=== PATIENT | male | born 2005 | race Caucasian/White ===

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

== ENCOUNTER 2023-02-02 00:06 | Emergency (ER) | payer MEDICAID, SELFPAY ==
[2023-02-02 00:07] VITALS: BMI 18.6
[2023-02-02 00:09] VITALS: BP 137/71; PULSE 104; RESP 16; TEMP 36.8; O2SAT 98
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
[2023-02-02 00:19] VITALS: RESP 18; O2SAT 94
[2023-02-02] MEDS: morphine 4 mg/mL SDV 1 mL IVP (00:19)
[2023-02-02] MEDS: ondansetron 2 mg/ML SDV 2 mL 4 MG IVP (00:20)
[2023-02-02 00:33] VITALS: BP 130/79; PULSE 92; RESP 18; O2SAT 96
== END 2023-02-02 00:40 | disposition home or self-care (01) ==
PROVIDERS: Emergency Provider Emergency Medicine; PCP Family Medicine
DX: S46.912A Strain of unspecified muscle, fascia and tendon at shoulder and upper arm level, left arm, initial encounter (principal); Y08.89XA Assault by other specified means, initial encounter; Y92.008 Other place in unspecified non-institutional (private) residence as the place of occurrence of the external cause
CPT/HCPCS: 12002; 73030; 96374; 96375; 99283; J2270; J2405

== ENCOUNTER 2024-06-13 23:23 | Emergency (ER) | payer MEDICAID, SELFPAY ==
--- NOTE | 2024-06-13 23:26 | ECG_ITS ---
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 Measurements Intervals [place] Rate: 83 P: 65 UT: 161 QRS: 81 QRSD: 96 T: 70 QT: 367 QTc: 433 Interpretive Statements SINUS RHYTHM WITH MARKED SINUS ARRHYTHMIA POSSIBLE LEFT ATRIAL ENLARGEMENT INCOMPLETE RIGHT BUNDLE BRANCH BLOCK Compared to ECG 03/12/2022 04:33:23 Sinus tachycardia no longer present Electronically Signed On 06-14-2024 12:10:41 CDT by Albino Drummond M.D. [email or web address]
[2024-06-13 23:27] VITALS: BP 161/81; PULSE 100; RESP 19; TEMP 36.8; O2SAT 100; BMI 19.8
[2024-06-13 23:33] VITALS: BP 141/86; PULSE 63; O2SAT 92
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
[2024-06-13 23:51] LABS: Basophils # 0.1 10^3/uL (0.0-0.1); Eosinophils # 0.2 10^3/uL (0.0-0.8); Eosinophils % 1.8 %; Hematocrit 41.1 % (37-53); Lymphocytes # 4.2 10^3/uL (1.5-6.5); Lymphocytes % 39.3 %; Mean Corpuscular Hemoglobin 29.2 pg (27-33); Mean Corpuscular Volume 83.4 fl (82-101); Mean Platelet Volume 10.7 fL (7.4-10.4); Monocytes # 0.7 10^3/uL (0.2-0.9); Monocytes % 6.1 %; Neutrophils # 5.52 10^3/uL (1.8-8.0); Neutrophils % 51.6 %; Nucleated Red Blood Cells % 0 %; Platelet Count 313 10^3/cmm (157-399); Red Blood Count 4.93 10^6/uL (3.85-5.65); Red Cell Distribution Width 13.5 % (12.1-15.1); White Blood Count 10.69 10^3/uL (4.5-13.0)
[2024-06-14] MEDS: ketorolac 30 mg/mL INJ 15 MG IVP (00:03)
[2024-06-14 00:04] VITALS: RESP 22; O2SAT 100
[2024-06-14] MEDS: morphine 4 mg/mL SDV 1 mL IVP (00:04)
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
[2024-06-14] MEDS: ondansetron 2 mg/ML SDV 2 mL 4 MG IVP (00:06)
[2024-06-14 00:07] LABS: Troponin(5th) Baseline 10 ng/L (0-15)
[2024-06-14 00:08] LABS: Alanine Aminotransferase 11 U/L (0-41); Albumin Level 4.5 g/dL (3.5-5.2); Alkaline Phosphatase 171 U/L (40-130); Blood Urea Nitrogen 9 mg/dL (6-20); Carbon Dioxide 20 mmol/L (22-29); Chloride 104 mmol/L (98-107); Creatine Phosphokinase 258 U/L (39-308); Creatinine Clr Calc Pharmacy 134.6392; Globulin 2.6 g/dL (1.3-4.6); Glomerular Filtration Rate 123.2 mL/min (90-130); Glucose 114 mg/dL (65-115); Osmolality Calculated 286 mOsm/kg (285-295); Sodium 138 mmol/L (136-145); Total Bilirubin 0.4 mg/dL (0.15-1.2); Total Protein 7.1 g/dL (6.6-8.7)
[2024-06-14 00:12] LABS: Anion Gap 17.3 (5-19); Aspartate Amino Transferase 24 U/L (0-40); Potassium 3.3 mmol/L (3.5-5.1)
[2024-06-14 00:33] VITALS: BP 146/72; PULSE 86; RESP 18; O2SAT 100
[2024-06-14 01:39] VITALS: BP 143/87; PULSE 71; RESP 19; O2SAT 100
== END 2024-06-14 01:30 | disposition home or self-care (01) ==
PROVIDERS: Emergency Provider Nurse Practitioner Family; PCP Family Medicine
DX: S20.212A Contusion of left front wall of thorax, initial encounter (principal); V80.018A Animal-rider injured by fall from or being thrown from other animal in noncollision accident, initial encounter; F17.290 Nicotine dependence, other tobacco product, uncomplicated
CPT/HCPCS: 71250; 80053; 82550; 84484; 85025; 93005; 96374; 96375; 99285; J1885; J2270; J2405

== ENCOUNTER 2024-12-21 22:28 | Emergency (ER) | payer MEDICAID, SELFPAY ==
[2024-12-21 22:29] VITALS: BP 140/75; PULSE 104; RESP 22; TEMP 36.4; O2SAT 100; BMI 19.8
--- NOTE | 2024-12-21 22:33 | ECG_ITS ---
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 Requested By: Teodoro Elliott Order Number: [id number] Crispin MD: ISATU MEYER Measurements Intervals [place] Rate: 104 P: 66 [place]: 164 QRS: 73 QRSD: 90 T: 76 QT: 326 QTc: 429 Interpretive Statements SINUS TACHYCARDIA LEFT ATRIAL ENLARGEMENT [-0.15mV P-WAVE IN V1/V2] POSSIBLE RIGHT VENTRICULAR CONDUCTION DELAY [RSR (QR) IN V1/V2] MODERATE ST DEPRESSION [0.05+ mV ST DEPRESSION] Compared to ECG 06/13/2024 23:26:31 ST (T wave) deviation now present Sinus rhythm no longer present Sinus arrhythmia no longer present Incomplete right bundle-branch block no longer present Electronically Signed On 12-22-2024 16:21:04 CDT by ISATU MEYER [id number]
--- NOTE | 2024-12-21 22:33 | XRR_ITS ---
PROCEDURE INFORMATION: Exam: XR Chest Exam date and time: 12/21/2024 10:41 PM Age: 19 years old Clinical indication: Shortness of breath; SOB TECHNIQUE: Imaging protocol: Radiologic exam of the chest. Views: 1 view. COMPARISON: CT chest con [id number] 06/13/2024 11:44 PM FINDINGS: Lungs: Unremarkable. No consolidation. Pleural spaces: Unremarkable. No pleural effusion. No pneumothorax. Heart/Mediastinum: Unremarkable. No cardiomegaly. Bones/joints: Unremarkable. XR/XR chest 1V portable [id number] IMPRESSION: No acute findings.
--- NOTE | 2024-12-21 23:26 | ECG_ITS ---
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: : 2005 Requested By: Cristofer Rosado Order Number: [id number] Crispin MD: ISATU MEYER Measurements Intervals [place] Rate: 58 P: 37 RI: 157 QRS: 72 QRSD: 94 T: 57 QT: 364 QTc: 358 Interpretive Statements SINUS BRADYCARDIA POSSIBLE RIGHT VENTRICULAR CONDUCTION DELAY [RSR (QR) IN V1/V2] Compared to ECG 12/21/2024 22:34:04 Sinus tachycardia no longer present Atrial abnormality no longer present ST (T wave) deviation no longer present Electronically Signed On 12-22-2024 16:21:11 CDT by ISATU MEYER [id number] [id number]
--- NOTE | 2024-12-21 23:27 | W.ED.CHESTPA ---
HPI - Chest Pain General: Chief Complaint: Chest Pain Stated Complaint: CP SOB Time Seen by Provider: 12/21/24 23:20 History of Present Illness: 19-year-old male who presents emerged part with complaint of chest pain and syncope. Patient states that he was chasing his child around and developed chest pain and then had a syncopal episode. He states he has had chest pain a few times in the past year but never as bad as this. His chest wall does hurt to palpate on the left side underneath the breast as well as a little bit to the right along the sternal border. Does have a history of drug use. He states he does not use drugs anymore. He does smoke. Related Data Previous Rx's ?Medication ?Instructions ?Recorded naproxen 500 mg tablet 500 mg PO BID PRN pain #28 tabs 11/20/21 methocarbamol 750 mg tablet 750 mg PO Q6H PRN spasms #20 tabs 06/14/24 naproxen 500 mg tablet (Naprosyn) 500 mg PO BID PRN pain #20 tabs 06/14/24 escitalopram oxalate 20 mg tablet 20 mg PO DAILY #30 tabs 11/13/24 quetiapine 100 mg tablet 100 mg PO .q hs #30 tabs 11/13/24 Allergies Allergy/AdvReac Type Severity Reaction Status Date / Time No Known Allergies Allergy Verified 11/13/24 13:51 [facility] ED PFSH: Medical History (Updated 12/22/24 @ 00:36 by Cristofer Rosado MD) Psychiatric care No pertinent past medical history Social History Smoking and tobacco/nicotine status: current every day tobacco/nicotine user cigarettes Packs smoked per day: 2, e-cigarettes E-Cigarette Details: with nicotine and smokeless tobacco Smokeless tobacco user: chewing tobacco Quit status (tobacco/nicotine): not considering quitting Second hand smoke exposure: No Alcohol intake: current Alcohol intake frequency: holidays/special occasions only Alcohol type: beer Substance/Drug Use: former Date of last use: december 2020- Physical Exam HENMT: COMMON NORMALS: normocephalic, atraumatic, hearing grossly normal bilaterally, external ears normal, EAC's normal, TM's normal bilaterally, Normal external nose present, Normal nasal mucous membranes and turbinates present, moist oral mucous membranes, oropharynx normal, dentition normal and gingiva normal HEAD & SCALP: normocephalic and atraumatic NOSE: Normal external nose present and Normal nasal mucous membranes and turbinates present EXTERNAL EAR: Yes external ears normal EXTERNAL AUDITORY CANAL: EAC's normal TYMPANIC MEMBRANE: TM's normal bilaterally Neck/C-Spine: COMMON NORMALS: no JVD Chest: OTHER: Both left and right chest wall tenderness Resp: COMMON NORMALS: normal respiratory effort, No retractions, No use of accessory muscles, clear to auscultation bilaterally and percussion normal AUSCULTATION: clear to auscultation bilaterally PERCUSSION: percussion normal Cardio: COMMON NORMALS: no JVD, regular rate, regular rhythm, S1 normal heart sound present, S2 normal heart sound present, No gallops present (Cardio), No clicks present (Cardio), No murmurs present (Cardio), No rub (Cardio) and Peripheral pulses 2+ throughout RATE: regular rate RHYTHM: regular rhythm HEART SOUNDS: S1 normal heart sound present and S2 normal heart sound present PERIPHERAL PULSES: Peripheral pulses 2+ throughout GI: COMMON NORMALS: Normal to inspection, nondistended, normoactive bowel sounds present, Soft to palpation, non-tender, No hepatosplenomegaly present, no masses and no bruits PALPATION: Yes Soft to palpation and Yes No hepatosplenomegaly present Neuro: FRANCISCA COMA SCALE: document GCS findings COMMON NORMALS: CN's II-XII intact bilaterally, moves all extremities, no focal motor deficits and no sensory deficits noted Course Vital Signs: Vital signs: Vital Signs Temperature 97.5 F L 12/21/24 22:29 Pulse Rate 69 12/21/24 23:33 Respiratory Rate 22 H 12/21/24 22:29 Blood Pressure 138/83 12/21/24 23:33 Pulse Oximetry 93 12/21/24 23:33 Oxygen Delivery Me thod Room Air 12/21/24 22:29 MDM - Chest Pain Medical Decision Making Patient presented to the emergency department with complaint of chest pain and syncope. He left prior to workup being completed. He states that he feels better and does not want to stay for results. His initial labs that were back did not show any significant abnormality. Had a negative troponin and negative D-dimer. Suspect noncardiac etiology but again patient left AGAINST MEDICAL ADVICE prior to completion of workup. Patient is awake and alert nonintoxicated and appears to have capacity to make his own medical decisions. Lab Data 12/21/24 23:26 12/21/24 23: Radiology Impressions Chest X-Ray 12/21/24 22:33 IMPRESSION: No acute findings. Laboratory Results WBC 9.92 10^3/uL (3.29-11.43) 12/21/24 23: RBC 5.25 10^6/uL (3.85-5.65) 12/21/24 23: Hgb 15.50 g/dL (11.27-16.99) 12/21/24 23: Hct 45.2 % (37-53) 12/21/24 23: MCV 86.1 fl (82-101) 12/21/24 23: MCH 29.5 pg (27-33) 12/21/24 23: MCHC 34.3 g/dL (30-55) 12/21/24 23: RDW 12.8 % (12.1-15.1) 12/21/24 23: Plt Count 271 10^3/cmm (157-399) 12/21/24 23: MPV 11.0 fL (7.4-10.4) H 12/21/24 23: Neut % (Auto) 49.0 % 12/21/24 23: Lymph % (Auto) 43.4 % 12/21/24 23: [place] % (Auto) 5.6 % 12/21/24 23: Eos % (Auto) 0.9 % 12/21/24 23: Baso % (Auto) 0.9 % 12/21/24 23: Neut # (Auto) 4.85 10^3/uL (1.8-7.7) 12/21/24 23: Lymph # (Auto) 4.3 10^3/uL (0.8-4.8) 12/21/24 23: [place] # (Auto) 0.6 10^3/uL (0.2-0.9) 12/21/24 23: Eos # (Auto) 0.1 10^3/uL (0.0-0.8) 12/21/24 23: Baso # (Auto) 0.1 10^3/uL (0.0-0.1) 12/21/24 23:26 Nucleated RBC % (auto) 0 % 12/21/24 23: Nucleated RBCs # 0.0 /100WBC 12/21/24 23:26 D-Dimer 0.33 ug/mLFEU (0-0.59) 12/21/24 23:26 Sodium 144 mmol/L (136-145) 12/21/24 23:26 Potassium 3.7 mmol/L (3.5-5.1) 12/21/24 23:26 Chloride 110 mmol/L (98-107) H 12/21/24 23:26 Carbon Dioxide 23 mmol/L (22-29) 12/21/24 23:26 Anion Gap 14.7 (5-19) 12/21/24 23:26 BUN 11 mg/dL (6-20) 12/21/24 23:26 Creatinine 0.7 mg/dL (0.7-1.2) 12/21/24 23:26 GFR Calculation 142.4 mL/min (90-130) H 12/21/24 23:26 Glucose 97 mg/dL (65-115) 12/21/24 23:26 Calculated Osmolality 297 mOsm/kg (285-295) H 12/21/24 23:26 Calcium 10.5 mg/dL (8.5-10.5) 12/21/24 23:26 Total Bilirubin 0.2 mg/dL (0.15-1.2) 12/21/24 23:26 AST 25 U/L (0-40) 12/21/24 23: ALT 33 U/L (0-41) 12/21/24 23:26 Alkaline Phosphatase 154 U/L (40-130) H 12/21/24 23:26 Troponin T Baseline 8 ng/L (0-15) 12/21/24 23:26 NT-Pro-B Natriuret Pep < 36 pg/mL (0-125) 12/21/24 23:26 Total Protein 7.2 g/dL (6.6-8.7) 12/21/24 23:26 Albumin 4.5 g/dL (3.5-5.2) 12/21/24 23: Globulin 2.7 g/dL (1.3-4.6) 12/21/24 23:26 Lipase 17 U/L (13-60) 12/21/24 23:26 All radiology interpretation(s) finalized by discharge Discharge Plan Discharge Patient Disposition: Left Against Medical Advice Clinical Impression: Chest pain Qualifiers: Chest pain type: unspecified Qualified Code(s): R07.9 - Chest pain, unspecified Condition: Stable Prescriptions: No Action quetiapine 100 mg tablet 100 mg PO .q hs Qty: 30 1RF escitalopram oxalate 20 mg tablet 20 mg PO DAILY Qty: 30 1RF naproxen 500 mg tablet 500 mg PO BID PRN (Reason: pain) Qty: 28 0RF methocarbamol 750 mg tablet 750 mg PO Q6H PRN (Reason: spasms) Qty: 20 0RF naproxen [Naprosyn] 500 mg tablet 500 mg PO BID PRN (Reason: pain) Qty: 20 0RF Referrals: Kam Villela MD [Primary Care Provider, Family Practice] Print Language: Tamazight Coding Level of Care Code ED Managed Services Sales Consultant for aKtie Carrero
[2024-12-21 23:33] VITALS: BP 138/83; PULSE 69; O2SAT 93
[2024-12-21] MEDS: ketorolac 30 mg/mL INJ IVP (23:45)
[2024-12-21 23:56] LABS: D Dimer 0.33 ug/mLFEU (0-0.59)
[2024-12-21 23:58] LABS: Basophils # 0.1 10^3/uL (0.0-0.1); Basophils % 0.9 %; Eosinophils # 0.1 10^3/uL (0.0-0.8); Eosinophils % 0.9 %; Hematocrit 45.2 % (37-53); Lymphocytes # 4.3 10^3/uL (0.8-4.8); Lymphocytes % 43.4 %; Mean Corpuscular HGB Conc 34.3 g/dL (30-55); Mean Corpuscular Hemoglobin 29.5 pg (27-33); Mean Corpuscular Volume 86.1 fl (82-101); Monocytes # 0.6 10^3/uL (0.2-0.9); Monocytes % 5.6 %; Neutrophils # 4.85 10^3/uL (1.8-7.7); Nucleated Red Blood Cells % 0 %; Platelet Count 271 10^3/cmm (157-399); Red Blood Count 5.25 10^6/uL (3.85-5.65); Red Cell Distribution Width 12.8 % (12.1-15.1); White Blood Count 9.92 10^3/uL (3.29-11.43)
[2024-12-22] LABS: Troponin(5th) Baseline 8 ng/L (0-15)
[2024-12-22 00:08] LABS: Alanine Aminotransferase 33 U/L (0-41); Albumin Level 4.5 g/dL (3.5-5.2); Alkaline Phosphatase 154 U/L (40-130); Anion Gap 14.7 (5-19); Aspartate Amino Transferase 25 U/L (0-40); Blood Urea Nitrogen 11 mg/dL (6-20); Calcium 10.5 mg/dL (8.5-10.5); Carbon Dioxide 23 mmol/L (22-29); Chloride 110 mmol/L (98-107); Creatinine Clr Calc Pharmacy 152.5911; Globulin 2.7 g/dL (1.3-4.6); Glomerular Filtration Rate 142.4 mL/min (90-130); Glucose 97 mg/dL (65-115); Lipase 17 U/L (13-60); Osmolality Calculated 297 mOsm/kg (285-295); Potassium 3.7 mmol/L (3.5-5.1); Sodium 144 mmol/L (136-145); Total Bilirubin 0.2 mg/dL (0.15-1.2); Total Protein 7.2 g/dL (6.6-8.7)
[2024-12-22 00:13] LABS: NT Pro B Type Natriuretic Pept < 36 pg/mL (0-125)
== END 2024-12-22 00:33 | disposition left against medical advice (07) ==
PROVIDERS: Emergency Provider Emergency Medicine; PCP Family Medicine
DX: R07.9 Chest pain, unspecified (principal); F17.210 Nicotine dependence, cigarettes, uncomplicated
CPT/HCPCS: 71045; 80053; 83690; 83880; 84484; 85025; 85378; 93005; 96374; 99285; J1885

== ENCOUNTER 2025-01-07 16:33 | Emergency (ER) | payer MEDICAID, SELFPAY ==
--- NOTE | 2025-01-07 16:38 | ECG_ITS ---
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 Requested By: Rojelio Watkins Order Number: [id number] Crispin MD: ISATU MEYER Measurements Intervals [place] Rate: 78 P: 81 [place]: 148 QRS: 95 QRSD: 93 T: 76 QT: 371 QTc: 423 Interpretive Statements SINUS RHYTHM WITH SINUS ARRHYTHMIA POSSIBLE LEFT ATRIAL ENLARGEMENT [-0.1mV P-WAVE IN V1/V2] BORDERLINE RIGHT AXIS DEVIATION [QRS AXIS > 90] POSSIBLE RIGHT VENTRICULAR CONDUCTION DELAY [RSR (QR) IN V1/V2] POSSIBLE LEFT VENTRICULAR HYPERTROPHY [VOLTAGE CRITERIA PLUS LAE OR QRS WIDENING] INTERPRETATION BASED ON A DEFAULT AGE OF 40 YEARS Compared to ECG 12/21/2024 23:27:51 Sinus bradycardia no longer present Electronically Signed On 01-07-2025 19:02:17 CDT by ISATU MEYER [email or web address] [id number]
--- NOTE | 2025-01-07 16:38 | XRR_ITS ---
PROCEDURE INFORMATION: Exam: XR Chest Exam date and time: 01/07/2025 4:44 PM Age: 19 years old Clinical indication: Cough and dyspnea and other: AMS; Additional info: Dyspnea/cough TECHNIQUE: Imaging protocol: Radiologic exam of the chest. Views: 1 view. COMPARISON: CR (CHEST, ) 12/21/2024 10:41 PM FINDINGS: Lungs: Unremarkable. No consolidation. Pleural spaces: Unremarkable. No pleural effusion. No pneumothorax. Heart/Mediastinum: Unremarkable. No cardiomegaly. Bones/joints: Unremarkable. XR/XR chest 1V portable [id number] IMPRESSION: No acute findings.
--- NOTE | 2025-01-07 16:40 | ED_ITS ---
HPI - General Adult 2 General: Chief complaint: Altered Mental Status Stated complaint: unresponsive Time Seen by Provider: 01/07/25 16:38 History of Present Illness: 19-year-old male arrives to the emergenc y room with the assistance of a another bystanders unresponsive evidently staff had to pull him from the vehicle. He did not respond to sternal rubs shortly after getting to the exam room patient again to arouse he states has been drinking since 9:00's morning he took 2 tablets of escitalopram he usually takes 1 pill twice a day he tells us. He denies taking every anything else. He denies using any other drugs. He is very lethargic. Initial exam patient is no focal neurologic deficits Associated symptoms: Deny chest pain or dyspnea Related Data Previous Rx's ?Medication ?Instructions ?Recorded naproxen 500 mg tablet 500 mg PO BID PRN pain #28 t abs 11/20/21 methocarbamol 750 mg tablet 750 mg PO Q6H PRN spasms # 20 tabs 06/14/24 naproxen 500 mg tablet (Naprosyn) 500 mg PO BID PRN pa in #20 tabs 06/14/24 escitalopram oxalate 20 mg tablet 20 mg PO DAILY #30 t abs 11/13/24 quetiapine 100 mg tablet 100 mg PO .q hs #30 tabs 09/08 Allergies Allergy/AdvReac Type Severity Reaction Status Date / Time No Known Allergies Allergy Verified 11/13/24 13:51 Review of Systems 2 Const: Denies: fever(s) or chills Card: Denies: chest pain Resp: Denies: dyspnea GI: Denies: abdominal pain : Denies: dysuria, urinary frequency or urinary urgency Musc: Denies: neck pain or back pain PFSH ED 2 PFSH: Medical History Psychiatric care No pertinent past medical history Social History Smoking and tobacco/nicotine status: current every day tobacco/nicotine user cigarettes Packs smoked per day: 2, e-cigarettes E-Cigarette Details: with nicotine and smokeless tobacco Smokeless tobacco user: chewing tobacco Quit status (tobacco/nicotine): not considering quitting Second hand smoke exposure: No Alcohol intake: current Alcohol intake frequency: holidays/special occasions only Alcohol type: beer Substance/Drug Use: former Date of last use: december 2020- Physical Exam 2 Const: GENERAL APPEARANCE: cooperative and lethargic O RIENTATION/CONSCIOUSNESS: Yes lethargic HENMT: COMMON NORMALS: normocephalic, atraumatic and hearing grossly normal bilaterally HEAD & SCALP: normocephalic and atraumatic Resp: COMMON NORMALS: normal respiratory effort, No retractions, No use of accessory muscles and clear to auscultation bilaterally AUSCULTATION: clear to auscultation bilaterally Cardio: COMMON NORMALS: regular rate, regular rhythm and No murmurs present (Cardio) RATE: regular rate RHYTHM: regular rhythm GI: COMMON NORMALS: Soft to palpation and No hepatosplenomegaly present A USCULTATION: Yes normoactive bowel sounds PALPATION: Yes Soft to palpation, No Tenderness to palpation present (GI), No Guarding due to palpation present (GI) and Yes No hepatosplenomegaly present Extremity: COMMON NORMALS: normal to inspection, capillary refill normal, no clubbing, cyanosis or edema, no calf tenderness and no pedal edema Neuro: SENSORIUM/ORIENTATION: Yes lethargic Skin: COMMON NORMALS: no rashes or lesions noted GENERAL SKIN EXAM: no rashes or lesions noted Course 2 Vital Signs: Vital signs: Vital Signs Temperature 97.3 F L 01/07/25 16:42 Pulse Rate 67 01/07/25 16:50 Respiratory Rate 12 01/07/25 16:50 Blood Pressure 154/98 01/07/25 16:50 Pulse Oximetry 100 01/07/25 16:50 Oxygen Delivery Me thod Room Air 01/07/25 16:50 MDM - General Adult Medical Decision Making Patient arrived we were able to arouse him but he is very lethargic he was given Narcan shortly thereafter he is awake and alert and he wants to leave. We had gotten blood work from his blood alcohol was undetectable he told us he been drinking all day he is adamant about leaving he denies being homicidal or suicidal he will not answer any further questions I do not have anything with which to place him on a 96-hour hold and he has no family here he has a phone with him which she was operated. He will not discussed the possibility of staying here for the remainder of her workup and he is advised he could return if he wishes. Patient left AGAINST MEDICAL ADVICE. Most likely patient was under the influence of narcotics and Narcan reversed at fully and he is adamant to leave now. Lab Data 01/07/25 16:37 01/07/25 16:37 Radiology Impressions Chest X-Ray 01/07/25 16:38 IMPRESSION: No acute findings. Laboratory Results WBC 8.07 10^3/uL (3.29-11.43) 01/07/25 16:37 RBC 5.80 10^6/uL (3.85-5.65) H 01/07/25 16:37 Hgb 16.60 g/dL (11.27-16.99) 01/07/25 16:37 Hct 48.8 % (37-53) 01/07/25 16:37 MCV 84.1 fl (82-101) 01/07/25 16:37 MCH 28.6 pg (27-33) 01/07/25 16:37 MCHC 34.0 g/dL (30-55) 01/07/25 16:37 RDW 12.7 % (12.1-15.1) 01/07/25 16:37 Plt Count 312 10^3/cmm (157-399) 01/07/25 16:37 MPV 10.2 fL (7.4-10.4) 01/07/25 16:37 Neut % (Auto) 42.2 % 01/07/25 16:37 Lymph % (Auto) 48.1 % 01/07/25 16:37 [place] % (Auto) 6.7 % 01/07/25 16:37 Eos % (Auto) 1.5 % 01/07/25 16:37 Baso % (Auto) 1.1 % 01/07/25 16:37 Neut # (Auto) 3.41 10^3/uL (1.8-7.7) 01/07/25 16:37 Lymph # (Auto) 3.9 10^3/uL (0.8-4.8) 01/07/25 16:37 [place] # (Auto) 0.5 10^3/uL (0.2-0.9) 01/07/25 16:37 Eos # (Auto) 0.1 10^3/uL (0.0-0.8) 01/07/25 16:37 Baso # (Auto) 0.1 10^3/uL (0.0-0.1) 01/07/25 16:37 Nucleated RBC % (auto) 0 % 01/07/25 16:37 Nucleated RBCs # 0.0 /100WBC 01/07/25 16:37 Sodium 139 mmol/L (136-145) 01/07/25 16:37 Potassium 3.5 mmol/L (3.5-5.1) 01/07/25 16:37 Chloride 101 mmol/L (98-107) 01/07/25 16:37 Carbon Dioxide 24 mmol/L (22-29) 01/07/25 16:37 Anion Gap 17.5 (5-19) 01/07/25 16:37 BUN 4 mg/dL (6-20) L 01/07/25 16:37 Creatinine 0.6 mg/dL (0.7-1.2) L 01/07/25 16:37 GFR Calculation 170.1 mL/min (90-130) H 01/07/25 16:37 Glucose 115 mg/dL (65-115) 01/07/25 16:37 Calculated Osmolality 286 mOsm/kg (285-295) 01/07/25 16:37 Lactic Acid 1.3 mmol/L (0.5-2.2) 01/07/25 16:37 Calcium 9.8 mg/dL (8.5-10.5) 01/07/25 16:37 Total Bilirubin 0.2 mg/dL (0.15-1.2) 01/07/25 16:37 AST 21 U/L (0-40) 01/07/25 16:37 ALT 22 U/L (0-41) 01/07/25 16:37 Alkaline Phosphatase 168 U/L (40-130) H 01/07/25 16:37 Total Protein 8.1 g/dL (6.6-8.7) 01/07/25 16:37 Albumin 4.3 g/dL (3.5-5.2) 01/07/25 16:37 Globulin 3.8 g/dL (1.3-4.6) 01/07/25 16:37 Lipase 12 U/L (13-60) L 01/07/25 16:37 Urine Color Yellow (Yellow) 01/07/25 16:47 Urine Appearance Clear (CLEAR) 01/07/25 16:47 Urine pH 7.0 (5-7) 01/07/25 16:47 Ur Specific [place] 1.004 (1.005-1.030) L 01/07/25 16:47 Urine Protein Negative (Negative) 01/07/25 16:47 Urine Glucose (UA) Negative (Normal) 01/07/25 16:47 Urine Ketones Negative (Negative) 01/07/25 16:47 Urine Blood Negative (Negative) 01/07/25 16:47 Urine Nitrate Negative (Negative) 01/07/25 16:47 Urine Bilirubin Negative (Negative) 01/07/25 16:47 Urine Urobilinogen 0.2 mg/dL (Negative) 01/07/25 16:47 Ur Leukocyte Esterase Negative (Negative) 01/07/25 16:47 Urine RBC 0-2 /hpf (0-2) 01/07/25 16:47 Urine WBC 0-5 /hpf (0-5) 01/07/25 16:47 Ur Squamous Epith Cells 0-5 /hpf (0-5) 01/07/25 16:47 Amorphous Sediment Not Reportable 01/07/25 16:47 Urine Bacteria None seen /hpf (NONE) 01/07/25 16:47 Hyaline Casts 0.40 /lpf 01/07/25 16:47 Salicylates < 0.3 mg/dL (3-10) L 01/07/25 16:37 Acetaminophen < 5.0 ug/mL (10-30) L 01/07/25 16:37 Ethyl Alcohol < 10 mg/dL (0-10) 01/07/25 16:37 All radiology interpretation(s) finalized by discharge Discharge Plan Discharge Patient Disposition: Left Against Medical Advice Clinical Impression: Opiate or related narcotic overdose Condition: Stable Prescriptions: No Action quetiapine 100 mg tablet 100 mg PO .q hs Qty: 30 1RF escitalopram oxalate 20 mg tablet 20 mg PO DAILY Qty: 30 1RF naproxen 500 mg tablet 500 mg PO BID PRN (Reason: pain) Qty: 28 0RF methocarbamol 750 mg tablet 750 mg PO Q6H PRN (Reason: spasms) Qty: 20 0RF naproxen [Naprosyn] 500 mg tablet 500 mg PO BID PRN (Reason: pain) Qty: 20 0RF Referrals: Kam Villela MD [Primary Care Provider, Family Practice] Print Language: American Coding Level of Care Code ED Calender Tender for Chg Magan
[2025-01-07 16:42] VITALS: BP 154/98; PULSE 113; RESP 18; TEMP 36.3; O2SAT 100
[2025-01-07 16:44] LABS: Basophils # 0.1 10^3/uL (0.0-0.1); Basophils % 1.1 %; Eosinophils # 0.1 10^3/uL (0.0-0.8); Eosinophils % 1.5 %; Hematocrit 48.8 % (37-53); Lymphocytes # 3.9 10^3/uL (0.8-4.8); Lymphocytes % 48.1 %; Mean Corpuscular Hemoglobin 28.6 pg (27-33); Mean Corpuscular Volume 84.1 fl (82-101); Mean Platelet Volume 10.2 fL (7.4-10.4); Monocytes # 0.5 10^3/uL (0.2-0.9); Monocytes % 6.7 %; Neutrophils # 3.41 10^3/uL (1.8-7.7); Neutrophils % 42.2 %; Nucleated Red Blood Cells % 0 %; Platelet Count 312 10^3/cmm (157-399); Red Cell Distribution Width 12.7 % (12.1-15.1); White Blood Count 8.07 10^3/uL (3.29-11.43)
[2025-01-07 16:50] VITALS: BP 154/98; PULSE 67; RESP 12; O2SAT 100
[2025-01-07] MEDS: naloxone 0.4 mg/ml SDV IVP (16:54)
[2025-01-07 16:56] LABS: Bilirubin Urine Negative (Negative); Blood Urine Negative (Negative); Glucose Urine UA Negative (Normal); Ketones Urine Negative (Negative); Leukocyte Esterase Urine Negative (Negative); Nitrate Urine Negative (Negative); Protein Urine Negative (Negative); Specific Gravity, Urine 1.004 (1.005-1.030); Urine Appearance Clear (CLEAR); Urine Color Yellow (Yellow); Urobilinogen Urine 0.2 mg/dL (Negative)
[2025-01-07 17:01] LABS: Add Urine Microscopic? YES; Bacteria Urine None Seen /hpf; RBC Urine 0-2 /hpf (0-2); Squamous Epithelial Cell Urine 0-5 /hpf (0-5); WBC Urine 0-5 /hpf (0-5)
[2025-01-07 17:04] LABS: Lactic Sepsis W/Reflex 1.3 mmol/L (0.5-2.2)
[2025-01-07 17:05] LABS: Alanine Aminotransferase 22 U/L (0-41); Albumin Level 4.3 g/dL (3.5-5.2); Alkaline Phosphatase 168 U/L (40-130); Anion Gap 17.5 (5-19); Aspartate Amino Transferase 21 U/L (0-40); Blood Urea Nitrogen 4 mg/dL (6-20); Calcium 9.8 mg/dL (8.5-10.5); Carbon Dioxide 24 mmol/L (22-29); Chloride 101 mmol/L (98-107); Creatinine Clr Calc Pharmacy 191.7674; Globulin 3.8 g/dL (1.3-4.6); Glomerular Filtration Rate 170.1 mL/min (90-130); Glucose 115 mg/dL (65-115); Lipase 12 U/L (13-60); Osmolality Calculated 286 mOsm/kg (285-295); Potassium 3.5 mmol/L (3.5-5.1); Sodium 139 mmol/L (136-145); Total Bilirubin 0.2 mg/dL (0.15-1.2); Total Protein 8.1 g/dL (6.6-8.7)
[2025-01-07 17:18] LABS: Acetaminophen < 5.0 ug/mL (10-30); Alcohol Level < 10 mg/dL (0-10); Salicylate < 0.3 mg/dL (3-10)
== END 2025-01-07 17:13 | disposition left against medical advice (07) ==
PROVIDERS: Emergency Provider Family Medicine; PCP Family Medicine
DX: T40.601A Poisoning by unspecified narcotics, accidental (unintentional), initial encounter (principal); R41.82 Altered mental status, unspecified; F17.290 Nicotine dependence, other tobacco product, uncomplicated; F17.220 Nicotine dependence, chewing tobacco, uncomplicated; Z53.29 Procedure and treatment not carried out because of patient's decision for other reasons
CPT/HCPCS: 36600; 71045; 80051; 80053; 80307; 81001; 82330; 82805; 83605; 83690; 85025; 93005; 99285; J2310

== ENCOUNTER 2025-02-01 13:57 | Emergency (ER) | payer BC, MEDICAID, SELFPAY ==
[2025-02-01 13:59] VITALS: BP 109/81; PULSE 74; RESP 13; TEMP 36.2; O2SAT 100
--- NOTE | 2025-02-01 13:59 | XR_ITS ---
WS: [id number] Portable AP upright chest, 02/01/2025 Clinical Data: dyspnea/cough Comparison: Portable chest, 01/07/2025 Findings: No nodules, masses or effusions are seen. The heart is normal. The pulmonary vascularity is not increased. No pneumonia or pneumothorax is seen. Monitor leads are on the chest wall. XR/XR chest 1V portable [id number] Impression: Negative chest.
--- NOTE | 2025-02-01 14:08 | ECG_ITS ---
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 Measurements Intervals [place] Rate: 80 P: 77 NM: 154 QRS: 95 QRSD: 93 T: 106 QT: 351 QTc: 406 Interpretive Statements SINUS RHYTHM LEFT ATRIAL ENLARGEMENT [-0.15mV P-WAVE IN V1/V2] BORDERLINE RIGHT AXIS DEVIATION [QRS AXIS > 90] POSSIBLE RIGHT VENTRICULAR CONDUCTION DELAY [RSR (QR) IN V1/V2] NONSPECIFIC ST & T-WAVE ABNORMALITY Compared to ECG 01/07/2025 16:38:36 T-wave abnormality now present Sinus arrhythmia no longer present Electronically Signed On 02-03-2025 19:39:31 CDT by Albino Drummond M.D. [email or web address] [id number]
--- NOTE | 2025-02-01 14:09 | ED_ITS ---
HPI - General Adult 2 General: Chief complaint: Overdose Stated complaint: overdose Time Seen by Provider: 02/01/25 13:58 History of Present Illness: 19-year-old male presents to the emergen cy room via EMS from home. Patient had accidental overdose on medications he was given by a friend. He states he was just trying to get high. We have seen him here before with similar issues he responded well to Narcan previously but not this time. He is not sure what he took at all he denies suicidal homicidal ideation. He is somewhat lethargic he is complaining of acute neck pain. Denies any trauma or injury Associated symptoms: Deny chest pain, dyspnea or rash Related Data Previous Rx's ?Medication ?Instructions ?Recorded naproxen 500 mg tablet 500 mg PO BID PRN pain #28 t abs 11/20/21 methocarbamol 750 mg tablet 750 mg PO Q6H PRN spasms # 20 tabs 06/14/24 naproxen 500 mg tablet (Naprosyn) 500 mg PO BID PRN pa in #20 tabs 06/14/24 escitalopram oxalate 20 mg tablet 20 mg PO DAILY #30 t abs 11/13/24 quetiapine 100 mg tablet 100 mg PO .q hs #30 tabs 09/08 diclofenac sodium 75 mg 75 mg PO Q12H PRN pain #20 t abs 02/01/25 tablet,delayed release Allergies Allergy/AdvReac Type Severity Reaction Status Date / Time No Known Allergies Allergy Verified 11/13/24 13:51 Review of Systems 2 Const: Denies: fever(s) or chills Card: Denies: chest pain Resp: Denies: dyspnea GI: Denies: abdominal pain : Denies: dysuria, urinary frequency or urinary urgency Musc: Denies: neck pain or back pain Skin/Breast: Denies: rash PFSH ED 2 PFSH: Medical History Psychiatric care No pertinent past medical history Social History Smoking and tobacco/nicotine status: current every day tobacco/nicotine user cigarettes Packs smoked per day: 2, e-cigarettes E-Cigarette Details: with nicotine and smokeless tobacco Smokeless tobacco user: chewing tobacco Quit status (tobacco/nicotine): not considering quitting Second hand smoke exposure: No Alcohol intake: current Alcohol intake frequency: holidays/special occasions only Alcohol type: beer Substance/Drug Use: former Date of last use: december 2020- Physical Exam 2 Const: COMMON NORMALS: no acute distress GENERAL APPEARANCE: cooperative and comfortable ORIENTATION/CONSCIOUSNESS: Yes awake HENMT: COMMON NORMALS: normocephalic, atraumatic and hearing grossly normal bilaterally HEAD & SCALP: normocephalic and atraumatic Resp: COMMON NORMALS: normal respiratory effort, No retractions, No use of accessory muscles and clear to auscultation bilaterally AUSCULTATION: clear to auscultation bilaterally Cardio: COMMON NORMALS: regular rate, regular rhythm and No murmurs present (Cardio) RATE: regular rate RHYTHM: regular rhythm GI: COMMON NORMALS: Soft to palpation and No hepatosplenomegaly present A USCULTATION: Yes normoactive bowel sounds PALPATION: Yes Soft to palpation, No Tenderness to palpation present (GI), No Guarding due to palpation present (GI) and Yes No hepatosplenomegaly present Extremity: COMMON NORMALS: normal to inspection, capillary refill normal, no clubbing, cyanosis or edema, no calf tenderness and no pedal edema Skin: COMMON NORMALS: no rashes or lesions noted GENERAL SKIN EXAM: no rashes or lesions noted Course 2 Vital Signs: Vital signs: Vital Signs Temperature 97.2 F L 02/01/25 13:59 Pulse Rate 70 02/01/25 14:30 Respiratory Rate 30 H 02/01/25 14:30 Blood Pressure 122/71 02/01/25 14:30 Pulse Oximetry 100 02/01/25 14:30 Oxygen Delivery Me thod Room Air 02/01/25 13:59 [facility] - General Adult Medical Decision Making Patient has some moderate torticollis some concern will give anything it may be sedating he did not respond to the Narcan that we gave him. We have intended to watch him became more awake Gibbs wished to leave did not have anything with which to justify 96-hour hold. Essentially he was recreationally using drugs unsure of what he took and he became very lethargic from it. He did briefly require oxygen of is not requiring that at this time. We encouraged him to stay he refuses will discharge home gave him diclofenac to use for his neck encouraged him to follow-up with substance abuse counseling such as NA or AA or at [facility]. He was given information regarding this. Medical Records I reviewed the patient's medical records. Lab Data I reviewed the patient's lab results. 02/01/25 14:11 02/01/25 14:11 Radiology Impressions Chest X-Ray 02/01/25 13:59 Impression: Negative chest. Laboratory Results WBC 7.92 10^3/uL (3.29-11.43) 02/01/25 14:11 RBC 5.72 10^6/uL (3.85-5.65) H 02/01/25 14:11 Hgb 16.60 g/dL (11.27-16.99) 02/01/25 14:11 Hct 47.2 % (37-53) 02/01/25 14:11 MCV 82.5 fl (82-101) 02/01/25 14:11 MCH 29.0 pg (27-33) 02/01/25 14:11 MCHC 35.2 g/dL (30-55) 02/01/25 14:11 RDW 13.4 % (12.1-15.1) 02/01/25 14:11 Plt Count 238 10^3/cmm (157-399) 02/01/25 14:11 MPV 11.2 fL (7.4-10.4) H 02/01/25 14:11 Neut % (Auto) 50.1 % 02/01/25 14:11 Lymph % (Auto) 41.7 % 02/01/25 14:11 [place] % (Auto) 5.9 % 02/01/25 14:11 Eos % (Auto) 1.1 % 02/01/25 14:11 Baso % (Auto) 0.9 % 02/01/25 14:11 Neut # (Auto) 3.97 10^3/uL (1.8-7.7) 02/01/25 14:11 Lymph # (Auto) 3.3 10^3/uL (0.8-4.8) 02/01/25 14:11 [place] # (Auto) 0.5 10^3/uL (0.2-0.9) 02/01/25 14:11 Eos # (Auto) 0.1 10^3/uL (0.0-0.8) 02/01/25 14:11 Baso # (Auto) 0.1 10^3/uL (0.0-0.1) 02/01/25 14:11 Nucleated RBC % (auto) 0 % 02/01/25 14:11 Nucleated RBCs # 0.0 /100WBC 02/01/25 14:11 Sodium 137 mmol/L (136-145) 02/01/25 14:11 Potassium 3.4 mmol/L (3.5-5.1) L 02/01/25 14:11 Chloride 99 mmol/L (98-107) 02/01/25 14:11 Carbon Dioxide 22 mmol/L (22-29) 02/01/25 14:11 Anion Gap 19.4 (5-19) H 02/01/25 14:11 BUN 11 mg/dL (6-20) 02/01/25 14:11 Creatinine 0.8 mg/dL (0.7-1.2) 02/01/25 14:11 GFR Calculation 122.0 mL/min (90-130) 02/01/25 14:11 Glucose 84 mg/dL (65-115) 02/01/25 14:11 Calculated Osmolality 283 mOsm/kg (285-295) L 02/01/25 14:11 Calcium 9.3 mg/dL (8.5-10.5) 02/01/25 14:11 Total Bilirubin 0.5 mg/dL (0.15-1.2) 02/01/25 14:11 AST 19 U/L (0-40) 02/01/25 14:11 ALT 26 U/L (0-41) 02/01/25 14:11 Alkaline Phosphatase 167 U/L (40-130) H 02/01/25 14:11 Total Protein 7.6 g/dL (6.6-8.7) 02/01/25 14:11 Albumin 4.6 g/dL (3.5-5.2) 02/01/25 14:11 Globulin 3.0 g/dL (1.3-4.6) 02/01/25 14:11 Salicylates < 0.3 mg/dL (3-10) L 02/01/25 14:11 Acetaminophen < 5.0 ug/mL (10-30) L 02/01/25 14:11 Ethyl Alcohol < 10 mg/dL (0-10) 02/01/25 14:11 All radiology interpretation(s) finalized by discharge Discharge Plan Discharge Patient Disposition: Home Clinical Impression: Antisocial personality disorder, Accidental overdose, Acute neck pain Condition: Stable Prescriptions: New diclofenac sodium 75 mg tablet,delayed release (DR/EC) 75 mg PO Q12H PRN (Reason: pain) Qty: 20 0RF No Action quetiapine 100 mg tablet 100 mg PO .q hs Qty: 30 1RF escitalopram oxalate 20 mg tablet 20 mg PO DAILY Qty: 30 1RF naproxen 500 mg tablet 500 mg PO BID PRN (Reason: pain) Qty: 28 0RF methocarbamol 750 mg tablet 750 mg PO Q6H PRN (Reason: spasms) Qty: 20 0RF naproxen [Naprosyn] 500 mg tablet 500 mg PO BID PRN (Reason: pain) Qty: 20 0RF Discharge Orders: Discharge ED (Routine); Ordered 02/01/25 Ordered By: Rojelio Ramirez Referrals: Kam Villela MD [Primary Care Provider, [facility]] Discharge Diet: Usual diet Discharge Activity: Increase activity as tolerated Patient Instructions: Opioid Safety, Pain Management Activity Restrictions/Additional Instructions: Thank you for choosing [facility] for your healthcare needs today. It is very important that you follow up as instructed or that you return to the Emergency Department should you have concerns or if your condition changes or worsens in any way. you were seen in the emergency room after overdosing on an unknown substance. Strongly recommend that you seek out Narcotics Anonymous or Alcoholics Anonymous to help with your substance abuse issues. Would recommend you stay for further monitoring you insisted on leaving. You may return at any time if you wish. Additionally gave you diclofenac to use as needed for the neck pain Print Language: [place] Islander Coding Level of Care Code ED Yardage Control Operator for Katie Carrero
[2025-02-01 14:19] LABS: Basophils # 0.1 10^3/uL (0.0-0.1); Basophils % 0.9 %; Eosinophils # 0.1 10^3/uL (0.0-0.8); Eosinophils % 1.1 %; Hematocrit 47.2 % (37-53); Lymphocytes # 3.3 10^3/uL (0.8-4.8); Lymphocytes % 41.7 %; Mean Corpuscular HGB Conc 35.2 g/dL (30-55); Mean Corpuscular Volume 82.5 fl (82-101); Mean Platelet Volume 11.2 fL (7.4-10.4); Monocytes # 0.5 10^3/uL (0.2-0.9); Monocytes % 5.9 %; Neutrophils # 3.97 10^3/uL (1.8-7.7); Neutrophils % 50.1 %; Nucleated Red Blood Cells % 0 %; Platelet Count 238 10^3/cmm (157-399); Red Blood Count 5.72 10^6/uL (3.85-5.65); Red Cell Distribution Width 13.4 % (12.1-15.1); White Blood Count 7.92 10^3/uL (3.29-11.43)
[2025-02-01] MEDS: naloxone 0.4 mg/ml SDV 1 MG IVP (14:20)
[2025-02-01 14:30] VITALS: BP 122/71; PULSE 70; RESP 30; O2SAT 100
[2025-02-01 14:38] LABS: Acetaminophen < 5.0 ug/mL (10-30); Alanine Aminotransferase 26 U/L (0-41); Albumin Level 4.6 g/dL (3.5-5.2); Alcohol Level < 10 mg/dL (0-10); Alkaline Phosphatase 167 U/L (40-130); Anion Gap 19.4 (5-19); Aspartate Amino Transferase 19 U/L (0-40); Blood Urea Nitrogen 11 mg/dL (6-20); Calcium 9.3 mg/dL (8.5-10.5); Carbon Dioxide 22 mmol/L (22-29); Chloride 99 mmol/L (98-107); Glucose 84 mg/dL (65-115); Osmolality Calculated 283 mOsm/kg (285-295); Potassium 3.4 mmol/L (3.5-5.1); Salicylate < 0.3 mg/dL (3-10); Sodium 137 mmol/L (136-145); Total Bilirubin 0.5 mg/dL (0.15-1.2); Total Protein 7.6 g/dL (6.6-8.7)
== END 2025-02-01 15:10 | disposition home or self-care (01) ==
PROVIDERS: Emergency Provider Family Medicine; PCP Family Medicine
DX: F60.2 Antisocial personality disorder (principal); M54.2 Cervicalgia; T50.901A Poisoning by unspecified drugs, medicaments and biological substances, accidental (unintentional), initial encounter; X58.XXXA Exposure to other specified factors, initial encounter; F17.210 Nicotine dependence, cigarettes, uncomplicated
CPT/HCPCS: 71045; 80053; 80307; 85025; 93005; 96374; 99285; J2310

== ENCOUNTER 2025-07-10 20:25 | Emergency (ER) | payer MEDICAID, SELFPAY ==
--- OUTSIDE RECORDS SUMMARY | 2016-05-13 08:20 | XMS_ITS | Continuity of Care Document ---
Author Organization [facility] Address [address] [place] [address] Phone Care Team Providers Care Cocoa Roaster Name Role Phone Unavailable Unavailable Unavailable Advance Directives Directive Yes / No Effective Date File Name No Information Encounters Encounter Description Practice Location Reason(s) For Visit Diagnoses Date Provider Providers Copied on Encounter [facility], [address], [address], tel:[phone] [facility] No Information 6 No Information Referring Provider: IVON ESCOBAR, [address] [place], [address]. tel:[phone] Family History Family Member Type Diagnosis Age At Onset Problem (finding) No family history of Ar rhythmia Problem (finding) No family hist ory of Congenital Heart Disease Distant Relative Problem (finding) Heart disease Problem (finding) No family hist ory of Diabetes Mellitus Problem (finding) No family hist ory of Cardiomyopathy - hypertrophic Problem (finding) No family history of Pr emature CAD Problem (finding) No family hist ory of Cardiomyopathy - dilated Payers Payer name Insurance type Covered democrat ID Authoriza tion(s) [place] [id number] Social History Type Description Quantity Date Captured Comments Alcohol Use Details Unknown Caffeine Use Details Unknown Tobacco Use Status No Information Smoking Status Former smoker Sex Male Vital Signs Date / Time: Height Weight BMI Pulse Rate Blood Pressure Temperature Respiratory Rate Body Surface Area Head Circumference BMI percentile Pulse Ox Inhaled Ox 3:39 PM 61.00 in 46.720 kg (103.00 lbs) 19.5 0 kg/m eter (2) 62 /min 18 /min 1.42 meter(2) 67 Chief Complaint And Reason For Visit No Information History Of Present Illness Encounter Date Complaint History Of Prese nt Illness No Information Instructions Date Instruction Additional Infor mation No Information Assessments Type Assessment Date No Information
[2025-07-10 20:30] VITALS: BP 120/68; PULSE 82; TEMP 36.7; O2SAT 99; BMI 19.8
--- NOTE | 2025-07-10 20:33 | ECG_ITS ---
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 Measurements Intervals [place] Rate: 89 P: 70 [place]: 153 QRS: 76 QRSD: 96 T: 71 QT: 342 QTc: 418 Interpretive Statements SINUS RHYTHM POSSIBLE RIGHT VENTRICULAR CONDUCTION DELAY [RSR (QR) IN V1/V2] INTERPRETATION BASED ON A DEFAULT AGE OF 40 YEARS Compared to ECG 02/01/2025 14:08:06 T-wave abnormality no longer present Electronically Signed On 07-11-2025 17:57:12 EXPLORATION MANAGER by Albino Drummond M.D. [email or web address] [id number]
--- NOTE | 2025-07-10 20:36 | XRR_ITS ---
PROCEDURE INFORMATION: Exam: XR Chest Exam date and time: 07/10/2025 8:37 PM Age: 19 years old Clinical indication: Cough and dyspnea; Additional info: Dyspnea/cough TECHNIQUE: Imaging protocol: Radiologic exam of the chest. Views: 1 view. COMPARISON: CR XR chest 1V portable [id number] 02/01/2025 2:19 PM FINDINGS: Lungs: Unremarkable. No consolidation. Pleural spaces: Unremarkable. No pleural effusion. No pneumothorax. Heart/Mediastinum: Unremarkable. No cardiomegaly. Bones/joints: Unremarkable. XR/XR chest 1V portable [id number] IMPRESSION: No acute findings.
[2025-07-10 21:10] LABS: Hematocrit 45.0 % (37-53); Hemoglobin 15.70 g/dL (11.27-16.99); Mean Corpuscular HGB Conc 34.9 g/dL (30-55); Mean Corpuscular Hemoglobin 28.8 pg (27-33); Mean Corpuscular Volume 82.6 fl (82-101); Nucleated Red Blood Cells % 0 %; Platelet Count 337 10^3/cmm (157-399); Red Blood Count 5.45 10^6/uL (3.85-5.65); White Blood Count 9.21 10^3/uL (3.29-11.43)
[2025-07-10 21:24] LABS: Respiratory Syncytial Virus Ce NEGATIVE (Negative); SARS-CoV-2 PCR NEGATIVE (Negative)
[2025-07-10 21:57] LABS: Alanine Aminotransferase 24 U/L (0-41); Albumin Level 4.4 g/dL (3.5-5.2); Alkaline Phosphatase 176 U/L (40-130); Anion Gap 17.7 (5-19); Aspartate Amino Transferase 18 U/L (0-40); Blood Urea Nitrogen 7 mg/dL (6-20); Calcium 9.9 mg/dL (8.5-10.5); Carbon Dioxide 26 mmol/L (22-29); Chloride 103 mmol/L (98-107); Globulin 3.5 g/dL (1.3-4.6); Glucose 106 mg/dL (65-115); Osmolality Calculated 294 mOsm/kg (285-295); Potassium 3.7 mmol/L (3.5-5.1); Sodium 143 mmol/L (136-145); Total Protein 7.9 g/dL (6.6-8.7)
--- NOTE | 2025-07-10 22:19 | ED_ITS ---
HPI - SOB/Dyspnea 2 General: Chief Complaint: Shortness of Breath/Dyspnea Stated Complaint: lung pain hard to breathe Time Seen by Provider: 07/10/25 21:57 History of Present Illness: HPI Narrative: 19-year-old male presents emergency room with complaints of right sided chest pain worse when he Gibbs deep breath or cough. No productive cough no hemoptysis. No fever sweats or chills. No recent trauma. No history of DVT or PE. Associated symptoms: Reports chest pain; Deny abdominal pain, fever(s) or hemoptysis Related Data Previous Rx's ?Medication ?Instructions ?Recorded naproxen 500 mg tablet 500 mg PO BID PRN pain #28 t abs 11/20/21 methocarbamol 750 mg tablet 750 mg PO Q6H PRN spasms # 20 tabs 06/14/24 naproxen 500 mg tablet (Naprosyn) 500 mg PO BID PRN pa in #20 tabs 06/14/24 escitalopram oxalate 20 mg tablet 20 mg PO DAILY #30 t abs 11/13/24 quetiapine 100 mg tablet 100 mg PO .q hs #30 tabs 09/08 diclofenac sodium 75 mg 75 mg PO Q12H PRN pain #20 t abs 02/01/25 tablet,delayed release diclofenac sodium 75 mg 75 mg PO Q12H PRN pain #20 t abs 07/10/25 tablet,delayed release Allergies Allergy/AdvReac Type Severity Reaction Status Date / Time No Known Allergies Allergy Verified 07/10/25 20:38 Review of Systems 2 Const: Denies: fever(s) or chills Card: Reports: chest pain Resp: Reports: pain on inspiration; Denies: dyspnea or hemoptysis GI: Denies: abdominal pain : Denies: dysuria, urinary frequency or urinary urgency Musc: Denies: neck pain or back pain Skin/Breast: Denies: rash PFSH ED 2 PFSH: Medical History Psychiatric care No pertinent past medical history Social History Smoking and tobacco/nicotine status: current every day tobacco/nicotine user cigarettes Packs smoked per day: 2, e-cigarettes E-Cigarette Details: with nicotine and smokeless tobacco Smokeless tobacco user: chewing tobacco Quit status (tobacco/nicotine): not considering quitting Second hand smoke exposure: No Alcohol intake: current Alcohol intake frequency: holidays/special occasions only Alcohol type: beer Substance/Drug Use: former Date of last use: december 2020- Physical Exam 2 Const: GENERAL APPEARANCE: cooperative ORIENTATION/CONSCIOUSNESS: Yes awake, Yes oriented to person, Yes oriented to place and Yes oriented to time HENMT: COMMON NORMALS: normocephalic, atraumatic and hearing grossly normal bilaterally HEAD & SCALP: normocephalic and atraumatic Resp: COMMON NORMALS: normal respiratory effort, No retractions, No use of accessory muscles and clear to auscultation bilaterally AUSCULTATION: clear to auscultation bilaterally Cardio: COMMON NORMALS: regular rate, regular rhythm and No murmurs present (Cardio) RATE: regular rate RHYTHM: regular rhythm GI: COMMON NORMALS: Soft to palpation and No hepatosplenomegaly present A USCULTATION: Yes normoactive bowel sounds PALPATION: Yes Soft to palpation, No Tenderness to palpation present (GI), No Guarding due to palpation present (GI) and Yes No hepatosplenomegaly present Extremity: COMMON NORMALS: normal to inspection, capillary refill normal, no clubbing, cyanosis or edema, no calf tenderness and no pedal edema Neuro: SENSORIUM/ORIENTATION: Yes oriented to person, Yes oriented to place and Yes oriented to time Skin: COMMON NORMALS: no rashes or lesions noted GENERAL SKIN EXAM: no rashes or lesions noted Course 2 Vital Signs: Vital signs: Vital Signs Temperature 98.1 F 07/10/25 20:30 Pulse Rate 77 07/10/25 22:28 Respiratory Rate 17 07/10/25 22:28 Blood Pressure 126/82 07/10/25 22:28 Pulse Oximetry 99 07/10/25 22:28 Oxygen Delivery Me thod Room Air 07/10/25 20:30 MDM - SOB/Dyspnea Medical Decision Making Medical decision making Social determinants: None I reviewed the patient's medical record. I reviewed the patient's current home meds Alternate historians: None Differential diagnosis pneumonia versus pneumothorax versus viral upper respiratory infection pleuritic chest pain Lab Review: Labs reviewed as found in the chart CBC normal chemistry panel unremarkable Imaging: Chest x-ray no acute findings, no infiltrates no masses Assessment of risk: Level of risk: Low Hospitalization considerations: Hospitalization not considered Reexamination: Repeat exam no respiratory distress stable on exam pain reproducible with inspiration Assessment and plan: Pain reproducible with inspiration laboratory test did not show any significant abnormality chest x-ray normal treat with anti- inflammatories follow-up as needed Medical Records I reviewed the patient's medical records. Lab Data I reviewed the patient's lab results. 07/10/25 21:07/10/25 21: Labs/Radiology: Radiology Impressions Chest X-Ray 07/10/25 20:36 IMPRESSION: No acute findings. Laboratory Results WBC 9.21 10^3/uL (3.29-11.43) 07/10/25 21: RBC 5.45 10^6/uL (3.85-5.65) 07/10/25 21: Hgb 15.70 g/dL (11.27-16.99) 07/10/25 21: Hct 45.0 % (37-53) 07/10/25 21: MCV 82.6 fl (82-101) 07/10/25 21: MCH 28.8 pg (27-33) 07/10/25 21: MCHC 34.9 g/dL (30-55) 07/10/25 21: RDW 13.0 % (12.1-15.1) 07/10/25 21: Plt Count 337 10^3/cmm (157-399) 07/10/25 21: MPV 10.1 fL (7.4-10.4) 07/10/25 21: Neut % (Auto) 57.6 % 07/10/25 21: Lymph % (Auto) 30.5 % 07/10/25 21: Stephenson % (Auto) 9.2 % 07/10/25 21: Eos % (Auto) 1.3 % 07/10/25 21: Baso % (Auto) 1.0 % 07/10/25 21: Neut # (Auto) 5.30 10^3/uL (1.8-7.7) 07/10/25 21: Lymph # (Auto) 2.8 10^3/uL (0.8-4.8) 07/10/25 21: Stephenson # (Auto) 0.9 10^3/uL (0.2-0.9) 07/10/25 21:01 Eos # (Auto) 0.1 10^3/uL (0.0-0.8) 07/10/25 21: Baso # (Auto) 0.1 10^3/uL (0.0-0.1) 07/10/25 21:01 Nucleated RBC % (auto) 0 % 07/10/25 21: Nucleated RBCs # 0.0 /100WBC 07/10/25 21:01 Sodium 143 mmol/L (136-145) 07/10/25 21: Potassium 3.7 mmol/L (3.5-5.1) 07/10/25 21: Chloride 103 mmol/L (98-107) 07/10/25 21: Carbon Dioxide 26 mmol/L (22-29) 07/10/25 21: Anion Gap 17.7 (5-19) 07/10/25 21: BUN 7 mg/dL (6-20) 07/10/25 21: Creatinine 0.6 mg/dL (0.7-1.2) L 07/10/25 21: GFR Calculation 170.1 mL/min (90-130) H 07/10/25 21: Glucose 106 mg/dL (65-115) 07/10/25 21: Calculated Osmolality 294 mOsm/kg (285-295) 07/10/25 21: Calcium 9.9 mg/dL (8.5-10.5) 07/10/25 21: Total Bilirubin 0.4 mg/dL (0.15-1.2) 07/10/25 21: AST 18 U/L (0-40) 07/10/25 21: ALT 24 U/L (0-41) 07/10/25 21: Alkaline Phosphatase 176 U/L (40-130) H 07/10/25 21: Total Protein 7.9 g/dL (6.6-8.7) 07/10/25 21: Albumin 4.4 g/dL (3.5-5.2) 07/10/25 21: Globulin 3.5 g/dL (1.3-4.6) 07/10/25 21:01 Influenza A (PCR) Negative (Negative) 07/10/25 20:40 Influenza Type B (PCR) Negative (Negative) 07/10/25 20:40 RSV (PCR) Negative (Negative) 07/10/25 20:40 SARS-CoV-2 (PCR) Negative (Negative) 07/10/25 20:40 All radiology interpretation(s) finalized by discharge ED provider radiology interpretation(s): Normal chest x-ray no acute findings Discharge Plan Discharge Patient Disposition: Home Clinical Impression: Pleuritic chest pain Condition: Stable Prescriptions: New diclofenac sodium 75 mg tablet,delayed release (DR/EC) 75 mg PO Q12H PRN (Reason: pain) Qty: 20 0RF No Action quetiapine 100 mg tablet 100 mg PO .q hs Qty: 30 1RF escitalopram oxalate 20 mg tablet 20 mg PO DAILY Qty: 30 1RF naproxen 500 mg tablet 500 mg PO BID PRN (Reason: pain) Qty: 28 0RF methocarbamol 750 mg tablet 750 mg PO Q6H PRN (Reason: spasms) Qty: 20 0RF naproxen [Naprosyn] 500 mg tablet 500 mg PO BID PRN (Reason: pain) Qty: 20 0RF diclofenac sodium 75 mg tablet,delayed release (DR/EC) 75 mg PO Q12H PRN (Reason: pain) Qty: 20 0RF Discharge Orders: Discharge ED (Routine); Ordered 07/10/25 Ordered By: Rojelio Ramirez Referrals: Kam Villela MD [Primary Care Provider, [facility]] Discharge Diet: Usual diet Discharge Activity: Increase activity as tolerated Patient Instructions: Opioid Safety, Pain Management, Patient Portal & Lila Instructions Activity Restrictions/Additional Instructions: Thank you for choosing [facility] for your healthcare needs today. It is very important that you follow up as instructed or that you return to the Emergency Department should you have concerns or if your condition changes or worsens in any way. Emergency department visits are focused on emergent conditions, in some cases you may require further evaluation on an outpatient basis. You are seen the emergency room complaint right sided chest pain worse you take a deep breath. Your chest x-ray was normal your other laboratory test clearly workup and swabs for flu COVID RSV were also negative. You can use [id number] cough cold remedies as needed use diclofenac for pain and follow-up with your primary care doctor as needed (Please note that included in your discharge packet is information concerning opioid safety and pain management. This information is given to all patients were discharged from the ER regardless of their discharge diagnosis or the medicines they usually take or are prescribed.) Print Language: Palauan Coding Level of Care Code ED Adjunct Communications Faculty Member for Katie Carrero
[2025-07-10 22:28] VITALS: BP 126/82; PULSE 77; RESP 17; O2SAT 99
== END 2025-07-10 22:29 | disposition home or self-care (01) ==
PROVIDERS: Emergency Provider Family Medicine; PCP Family Medicine
DX: R07.81 Pleurodynia (principal); Z11.52 Encounter for screening for COVID-19; F17.210 Nicotine dependence, cigarettes, uncomplicated; F17.290 Nicotine dependence, other tobacco product, uncomplicated
CPT/HCPCS: 36415; 71045; 80053; 85025; 87637; 93005; 99285